=== PATIENT | female | born 2000 | race Caucasian/White ===

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

== ENCOUNTER 2022-06-10 11:08 | Emergency (ER) | payer BC, SELFPAY ==
[2022-06-10 11:16] VITALS: BP 132/87; PULSE 92; RESP 20; TEMP 36.5; O2SAT 100
--- NOTE | 2022-06-10 11:25 | ED.URI ---
HPI - URI/Sore Throat General Chief Complaint: Upper Respiratory Infection Stated Complaint: fever, sore throat, cough, nasal drainage Time Seen by Provider: 06/10/22 11:25 Source: patient Mode of arrival: ambulatory Limitations: no limitations History of Present Illness HPI Narrative: 22-year-old female presents with complaint of congestion, sore throat, cough, sinus pressure for 6 days. Reports low-grade temp of 100? F. denies chest pain or shortness of breath. Reports history of frequent sinus infections but symptoms worse than normal. Is taking an wodj-ouv-mogsjor Tylenol cold and flu. All Systems reviewed and negative except as noted above. Related Data Allergies Allergy/AdvReac Type Severity Reaction Status Date / Time No Known Allergies Allergy Verified 06/10/22 11:15 Review of Systems Review of Systems: CONSTITUTIONAL: Reports fever. Chills, or sweats. EYES: Denies visual changes, redness, or discharge. ENT: Report rhinorrhea, congestion, sore throat, sinus pressure. Denies otalgia. CARDIOVASCULAR: Denies chest pain, palpitations, or edema. RESPIRATORY: Reports cough. Denies dyspnea. GASTROINTESTINAL: Denies abdominal pain, nausea, vomiting, or diarrhea. GENITOURINARY: Denies dysuria or hematuria. SKIN: Denies rash or itching. MUSCULOSKELETAL: Denies back pain, joint pain, or myalgia. NEUROLOGIC: Denies headache, numbness, or weakness. PSYCHIATRIC: Denies anxiety or depression. All other systems reviewed are negative, except as documented in HPI. PMFSH Comments At time of signature, agree with nursing past medical, surgical, social and family history. There is no relevant family history pertinent to the presenting complaint. Exam Narrative: GENERAL: This is a well-nourished, well-developed patient. Patient is ill-appearing in no acute distress. HEAD: normocephalic, atraumatic. EYES: PERRL. Sclera clear/white. Vision is grossly intact. EARS: External ears normal, auditory canals clear and without drainage, TMs normal without perforation. Hearing grossly intact. NOSE: External nose normal with clear nasal drainage, moderate congestion. No frontal or maxillary sinus tenderness. THROAT: Mucous membranes moist, mild erythema, clear postnasal drainage. NECK: Neck supple, non-tender without lymphadenopathy, masses or thyromegaly. CARDIOVASCULAR: Regular rate and rhythm without murmurs, gallops, or rubs. RESPIRATORY: Clear to auscultation. Breath sounds equal bilaterally. No wheezes, rales, or rhonchi. SKIN: warm, Dry, intact with no suspicious lesions or rash, good texture and turgor. NEURO: awake, alert, and oriented to person, place and time. There were no obvious focal neurologic abnormalities. EXTREMITIES: No joint tenderness, effusion, or edema noted. Course Course Level of Care: Express Care Visit Vital Signs Vital signs: Vital Signs Temperature 36.5 C 06/10/22 11:16 Pulse Rate 92 06/10/22 11:16 Respiratory Rate 20 06/10/22 11:16 Blood Pressure 132/87 06/10/22 11:16 Pulse Oximetry 100 06/10/22 11:16 Temperature 36.5 C 06/10/22 11:16 Pulse Rate 92 06/10/22 11:16 Respiratory Rate 20 06/10/22 11:16 Blood Pressure 132/87 06/10/22 11:16 Pulse Oximetry 100 06/10/22 11:16 Reviewed MDM - URI/Sore Throat MDM Narrative Medical decision making narrative: Negative strep and influenza test. Will treat patient for bacterial sinus infection injury to frequent history and exam findings. Discharge Plan Discharge Clinical Impression: Acute bacterial sinusitis Patient Disposition: Home, Self-Care Condition: Stable Instructions: Antibiotic Form, Sinusitis (ED) Additional Instructions: Your influenza and strep test were negative today. Take medications as prescribed to treat your symptoms. Do not drive while taking prescription cough medication. It will make you drowsy. Drink plenty of water and rest. See your doctor if symptoms not improving. Pres
== END 2022-06-10 11:49 | disposition home or self-care (01) ==
PROVIDERS: Emergency Provider Nurse Practitioner Family; PCP Family Medicine
DX: J01.90 Acute sinusitis, unspecified (principal)
CPT/HCPCS: 87081; 87804; 87880; 99213; G0463

== ENCOUNTER 2022-12-26 12:23 | Emergency (ER) | payer BC, SELFPAY ==
--- NOTE | 2022-12-26 12:29 | ED.URI ---
HPI - URI/Sore Throat General Chief Complaint: Upper Respiratory Infection Stated Complaint: headache,sore throat,sinus pressure,fever Source: patient and RN notes reviewed History of Present Illness HPI Narrative: 22 yo F presents to urgent care with mom at side. Pt states she has been having congestion, headache, and sore throat since Tuesday. Pt states she began running a fever of 99 F today. Pt denies any ear pain, chest pain, SOB, abdominal pain, or N/V/D. Pt states she took Theraflu last night without relief. Related Data Home Medications Medication Instructions Recorded Confirmed semaglutide (weight loss) 0.25 0.25 mg subcut WEEKLY 12/26/22 12/26/22 mg/0.5 mL subcutaneous pen injector (BrightSun) Allergies Allergy/AdvReac Type Severity Reaction Status Date / Time No Known Allergies Allergy Verified 12/26/22 12:35 Review of Systems Review of Systems: Pertinent positives and pertinent negatives per HPI. PMFSH Comments At the time of my signature, I reviewed and agree with the nursing past medical, surgical, social, and family history. There is no relevant family history pertinent to the patient complaint. Exam Narrative: GENERAL: This is a well-nourished, well-developed patient, in no apparent distress. HEAD: normocephalic, atraumatic. EYES: Sclera clear/white. Vision is grossly intact. EARS: External ears normal, auditory canals clear and without drainage, TMs normal without perforation. Hearing grossly intact. NOSE: congested and runny nose THROAT: Mucous membranes moist, posterior pharynx erythemic. NECK: Neck supple, non-tender without lymphadenopathy, masses or thyromegaly. CARDIOVASCULAR: Regular rate and rhythm without murmurs, gallops, or rubs. RESPIRATORY: Clear to auscultation. Breath sounds equal bilaterally. No wheezes, rales, or rhonchi. SKIN: warm, intact with no suspicious lesions or rash, good texture and turgor. NEURO: awake, alert, and oriented to person, place and time. There were no obvious focal neurologic abnormalities. Course Course Level of Care: Express Care Visit Vital Signs Vital signs: Vital Signs Temperature 99.8 F H 12/26/22 12:37 Pulse Rate 93 12/26/22 12:37 Respiratory Rate 16 12/26/22 12:37 Blood Pressure 118/79 12/26/22 12:37 Pulse Oximetry 100 12/26/22 12:37 Temperature 99.8 F H 12/26/22 12:37 Pulse Rate 93 12/26/22 12:37 Respiratory Rate 16 12/26/22 12:37 Blood Pressure 118/79 12/26/22 12:37 Pulse Oximetry 100 12/26/22 12:37 reviewed MDM - URI/Sore Throat MDM Narrative Medical decision making narrative: Viral illness may last between 7-21 days; antibiotics do not cure viral illness and are NOT recommended at this time. Also, recommend symptomatic treatment includes: rest, fluids, and increase humidity of the air at home. Recommend Acetaminophen as directed on the bottle to reduce fever, pain, headache. Please schedule a follow-up visit with your personal physician for further evaluation and treatment within 3-5days. If your symptoms persist, change or worsen significantly before you can contact your personal physician then please, without delay, go to the emergency department for further evaluation. Pt states she usually gets a sinus infection in the fall and spring and that OTC meds do not help with her. Pt asking for an antibiotic now. Pt educated on why an antibiotic is not recommended at this time. Pt states she has nasal rinses at home. Recommended she increase her Vitamin C, Vitamin D, and fluids at home. Differential Diagnosis Differential diagnosis: Likely upper respiratory infection, viral infection and pharyngitis Lab Data Attestation: I reviewed the patient's lab results. Labs: Strep Screen Presumptive Negative *(Reference Range: Negative)* Critical Care Time Critical Care Time Critical Care Time: No Discharge Plan Disch
[2022-12-26 12:37] VITALS: BP 118/79; PULSE 93; RESP 16; TEMP 37.7; O2SAT 100
== END 2022-12-26 12:55 | disposition home or self-care (01) ==
PROVIDERS: Emergency Provider Nurse Practitioner Family; PCP Family Medicine
DX: J02.9 Acute pharyngitis, unspecified (principal); J06.9 Acute upper respiratory infection, unspecified
CPT/HCPCS: 87081; 87880; 99213; G0463

== ENCOUNTER 2023-06-20 17:44 | Emergency (ER) | payer BC, SELFPAY ==
--- NOTE | ~2023-06-20 | XR_ITS ---
EXAMINATION: XR chest 1V portable DATE: 06/21/2023 00:39 INDICATION: Syncope. Dizziness. TECHNIQUE: A single frontal view of the chest was obtained. COMPARISON: None. FINDINGS: There is no pneumonia, pleural effusion, or pneumothorax. The heart size is normal. IMPRESSION: 1. No acute cardiopulmonary disease. Reviewed, dictated and finalized at location E.
--- NOTE | 2023-06-20 17:56 | ECG_ITS ---
Measurements Intervals [place] Rate: 88 P: 5 MO: 176 QRS: 31 QRSD: 89 T: 26 QT: 353 QTc: 429 Interpretive Statements SINUS RHYTHM NO PREVIOUS ECG AVAILABLE FOR COMPARISON Electronically Signed On 06-21-2023 11:24:25 CDT by Jaci Herzog M.D.
--- NOTE | 2023-06-20 17:57 | ED.GENADULT ---
HPI - General Adult General Chief complaint: Dizziness Stated complaint: lightheaded, near syncope Time Seen by Provider: 06/20/23 23:49 History of Present Illness HPI narrative: Melodie Trujillo is a 23 y/o female who presents with reports of having a near syncope yesterday and she reports that she has similar symptoms of light headed/dizzy about a year ago but the episodes have become more frequent. She reports that she has felt continued fatigue/ light headed/ nausea and vomited once a couple days ago. Related Data Home Medications Medication Instructions Recorded Confirmed semaglutide (weight loss) 0.25 0.25 mg subcut WEEKLY 12/26/22 12/26/22 mg/0.5 mL subcutaneous pen injector (tok tok tok) Allergies Allergy/AdvReac Type Severity Reaction Status Date / Time No Known Allergies Allergy Verified 12/26/22 12:35 Course Vital Signs Vital signs: Vital Signs Temperature 36.2 C L 06/20/23 17:58 Pulse Rate 100 06/20/23 17:58 Respiratory Rate 16 06/20/23 17:58 Blood Pressure 137/86 06/20/23 17:58 Pulse Oximetry 100 06/20/23 17:58 Temperature 36.2 C L 06/20/23 17:58 Pulse Rate 96 06/21/23 03:07 Respiratory Rate 14 06/21/23 03:07 Blood Pressure 122/82 06/21/23 03:07 Pulse Oximetry 100 06/21/23 03:07 Medical Decision Making Vital Signs Vital Signs: Vital Signs Temperature 36.2 C L 06/20/23 17:58 Pulse Rate 100 06/20/23 17:58 Respiratory Rate 16 06/20/23 17:58 Blood Pressure 137/86 06/20/23 17:58 Pulse Oximetry 100 06/20/23 17:58 Temperature 36.2 C L 06/20/23 17:58 Pulse Rate 96 06/21/23 03:07 Respiratory Rate 14 06/21/23 03:07 Blood Pressure 122/82 06/21/23 03:07 Pulse Oximetry 100 06/21/23 03:07 Lab Data 06/20/23 18:20 06/20/23 18:20 Labs: Lab Results 06/20/23 06/20/23 06/21/23 Range/Units 18:20 23:45 00:26 WBC 10.5 H (4.5-10.0) K/mm3 RBC 4.14 L (4.2-5.4) M/mm3 Hgb 12.1 (12.0-15.0) g/dL Hct 37.3 (37.0-47.0) % MCV 90.1 (80-100) fl MCH 29.2 (26-34) pg MCHC 32.4 (32-36) g/dl RDW 13.8 (11.5-14.5) % Plt Count 299 (150-375) k/mm3 MPV 9.3 (7.4-10.4) fl Immature Gran % (Auto) 0.3 (0-0.5) % Neut % (Auto) 67.7 (45.5-73.1) % Lymph % (Auto) 24.3 (18.3-44.2) % [place] % (Auto) 5.2 (2.6-8.5) % Eos % (Auto) 2.3 (0-4.4) % Baso % (Auto) 0.2 (0.2-1.2) % Lymph # (Auto) 2.55 (0.9-3.2) K/mm3 [place] # (Auto) 0.5 (0.1-0.6) K/mm3 Eos # (Auto) 0.2 (0-0.3) K/mm3 Baso # (Auto) 0.0 (0.0-0.1) K/mm3 Abs Immat Gran (auto) 0.03 (0.00-0.031) K/mm3 Absolute Neuts (auto) 7.1 H (1.3-6.7) K/mm3 Absolute Nucleated RBC 0.0 (0.0-0.012) K/mm3 Nucleated RBC % 0.0 (0.0-0.2) % Sodium 138 (137-145) mmol/L Potassium 3.6 (3.4-5.0) mmol/L Chloride 104 (98-107) mmol/L Carbon Dioxide 28 (22-30) mmol/L Anion Gap 6 L (8-16) mmol/L BUN 11 (7-17) mg/dL Creatinine 0.80 (0.7-1.0) mg/dL Estim Creat Clear Calc 101 ml/min Estimated GFR > 60 (59 - ) Glucose 94 (65-110) mg/dL Calcium 9.1 (8.4-10.2) mg/dL Total Bilirubin 0.4 (0.2-1.3) mg/dL AST 18 (14-36) U/L ALT 11 (6-35) U/L Alkaline Phosphatase 46 (38-126) U/L Troponin I < 0.012 (0.000-0.034) ng/mL Total Protein 8.0 (6.3-8.2) g/dL Albumin 4.1 (3.5-5.1) g/dL TSH (Reflex) 1.230 (0.465-4.68) uIU/mL Urine Color Yellow (Yellow) Urine Appearance Cloudy H (Clear) Urine pH 7.5 (5.0-9.0) Ur Specific [place] 1.034 (1.001-1.035) Urine Protein 1+ H (Negative) mg/dL Urine Glucose (UA) Negative (Negative) mg/dL Urine Ketones Trace H (Negative) mg/dL Ur Blood (Man) 3+ H (Negative) Urine Nitrate Negative (Negative) Urine Bilirubin Negative (Negative) Urine Urobilinogen 1.0 (<2.0) mg/dL Leukocyte Esterase Rfl 1+ H (Negative) HEIDI/UL Urin
[2023-06-20 17:58] VITALS: BP 137/86; PULSE 100; RESP 16; TEMP 36.2; O2SAT 100
[2023-06-20 18:27] LABS: Basophils Percent Auto 0.2 % (0.2-1.2); Eosinophils Absolute Auto 0.2 K/mm3 (0-0.3); Eosinophils Percent Auto 2.3 % (0-4.4); Hematocrit 37.3 % (37.0-47.0); Hemoglobin 12.1 g/dL (12.0-15.0); Immature Granulocyte Absolute 0.03 K/mm3 (0.00-0.031); Immature Granulocyte Percent A 0.3 % (0-0.5); Lymphocytes Absolute Auto 2.55 K/mm3 (0.9-3.2); Lymphocytes Percent Auto 24.3 % (18.3-44.2); Mean Corpuscular HGB Conc 32.4 g/dl (32-36); Mean Corpuscular Hemoglobin 29.2 pg (26-34); Mean Corpuscular Volume 90.1 fl (80-100); Mean Platelet Volume 9.3 fl (7.4-10.4); Monocytes Absolute Auto 0.5 K/mm3 (0.1-0.6); Monocytes Percent Auto 5.2 % (2.6-8.5); Neutrophils Absolute Auto 7.1 K/mm3 (1.3-6.7); Neutrophils Percent Auto 67.7 % (45.5-73.1); Platelet Count Result 299 k/mm3 (150-375); Red Blood Count 4.14 M/mm3 (4.2-5.4); Red Cell Distribution Width 13.8 % (11.5-14.5); White Blood Count 10.5 K/mm3 (4.5-10.0)
[2023-06-20 18:38] LABS: Alanine Aminotransferase 11 U/L (6-35); Albumin Level 4.1 g/dL (3.5-5.1); Alkaline Phosphatase 46 U/L (38-126); Anion Gap 6 mmol/L (8-16); Aspartate Amino Transferase 18 U/L (14-36); Bilirubin,Total 0.4 mg/dL (0.2-1.3); Blood Urea Nitrogen 11 mg/dL (7-17); Calcium 9.1 mg/dL (8.4-10.2); Carbon Dioxide 28 mmol/L (22-30); Chloride 104 mmol/L (98-107); Estimated CRCL calculation 101 ml/min; Estimated Glomerular Filt Rate > 60; Glucose 94 mg/dL (65-110); Potassium 3.6 mmol/L (3.4-5.0); Sodium 138 mmol/L (137-145)
[2023-06-20 18:49] LABS: Troponin I < 0.012 ng/mL (0.000-0.034)
[2023-06-20 23:57] LABS: Add Urine Microscopic? YES; Appearance Urine Cloudy (Clear); Bacteria Urine 1+ /hpf; Bilirubin Urine Negative (Negative); Blood Urine 3+ (Negative); Color Urine Yellow (Yellow); Glucose Urine UA Negative (Negative); Ketones Urine Trace mg/dL (Negative); Leukocyte Esterase Ur 1+ LEU/UL (Negative); Nitrate Urine Negative (Negative); Non Pathogenic Casts 0-2; Protein Urine 1+ mg/dL (Negative); Specific Grav Ur 1.034 (1.001-1.035); Squamous Epithelial Cell Urine Occasional /hpf (Few); pH Urine 7.5 (5.0-9.0)
[2023-06-21 00:04] VITALS: BP 104/71
[2023-06-21 00:09] VITALS: BP 107/84
[2023-06-21 00:14] VITALS: BP 102/63
[2023-06-21] MEDS: SODIUM CHLORIDE 0.9% IV 1,000 ML 999 ML IV CONT (00:26)
[2023-06-21 00:28] VITALS: BP 117/86; PULSE 88; RESP 19; O2SAT 98
[2023-06-21 01:55] VITALS: BP 113/71; PULSE 87; RESP 14; O2SAT 98
--- NOTE | 2023-06-21 02:29 | ED.GENADULT ---
HPI - General Adult General Chief complaint: Dizziness Stated complaint: lightheaded, near syncope Time Seen by Provider: 06/20/23 23:49 History of Present Illness HPI narrative: This is a 23-year-old female presenting to ED with a chief complaint of weakness for 2-3 months. it is a generalized weakness. Is not associated with fever chills chest pain difficulty breathing abdominal pain nausea vomiting or diarrhea. She is here today because she has been having episodes of syncope and presyncope. She said today while she was micro eating some food she started feel lightheaded, her vision darkened, she became flushed and she had to sit down. After she sat down her symptoms improved. Patient states she is not eating or drinking today. She has had multiple episodes like this in the past. Related Data Home Medications Medication Instructions Recorded Confirmed semaglutide (weight loss) 0.25 0.25 mg subcut WEEKLY 12/26/22 12/26/22 mg/0.5 mL subcutaneous pen injector ([employer]MyBest[employer]Fandeavor) Allergies Allergy/AdvReac Type Severity Reaction Status Date / Time No Known Allergies Allergy Verified 12/26/22 12:35 Exam Narrative: APPEARANCE: No apparent distress. Head: atraumatic. EYES: EOMI, NOSE: Atraumatic NECK: Trachea midline RESPIRATORY: No increased rate of breathing Clear auscultation CARDIOVASCULAR: RRR, no peripheral edema, no reproducible orthostatic hypotension ABDOMINAL: Non-distended soft nontender, no CVA tenderness MUSCULOSKELETAl: No obvious deformities NEURO: Alert. Moving 4/4 extremities SKIN:: Warm, dry. Normal color PSYCHIATRIC: Normal affect Course Vital Signs Vital signs: Vital Signs Temperature 97.1 F L 06/20/23 17:58 Pulse Rate 100 06/20/23 17:58 Respiratory Rate 16 06/20/23 17:58 Blood Pressure 137/86 06/20/23 17:58 Pulse Oximetry 100 06/20/23 17:58 Temperature 97.1 F L 06/20/23 17:58 Pulse Rate 87 06/21/23 01:55 Respiratory Rate 14 06/21/23 01:55 Blood Pressure 113/71 06/21/23 01:55 Pulse Oximetry 98 06/21/23 01:55 Medical Decision Making [facility] [place] Narrative Medical decision making narrative: -Course: 23-year-old female presenting with 3 months of generalized weakness and an episode of syncope today. Weakness: Workup was negative for a definitive cause of her weakness. She has no objective weakness on exam. she will follow-up with her primary care physician. Syncope: Workup negative. History and physical consistent with vasovagal syncope. Discharged with instructions to eat and drink regularly and follow-up with your primary care physician. -DDX includes but is not limited to: Vasovagal syncope, dehydration, neurogenic syncope, anemia, hypothyroid, depression -Co-morbidities complicating care: heavy menses -Social determinants of health: in college, lives with a roommate -Hx from independent Sources: mother and father at bedside -Independent interpretation of studies: hemoglobin normal. White blood cell count 10.5. Metabolic panel unremarkable. Troponin ordered by triage negative. urine had some white blood cells and red blood cells with the patient is currently on her menses. She has no symptoms of UTI and will not be treated. Chest x-ray unremarkable. Independent EKG interpretation: Rhythm [sinus], Rate 88], Allen -[normal], ME -[normal], QRS [narrow], QTC [normal], T waves -[negative for concerning inversions], ST Segments - [Negative for concerning elevations] Final interpretations: [Normal Sinus Rhythm] Orthostatics unremarkable. -Interventions: 2 L normal saline -Shared decision making / Disposition: discharge primary care follow-up. Vital Signs Vital Signs: Vital Signs Temperature 97.1 F L 06/20/23 17:58 Pulse Rate 100 06/20/23 17:58 Respiratory Rate 16 06/20/23 17:58 Blood Pressure 137/86 06/20/23 17:58 Pulse Oximetry 100 06/20/23 17:58 Temperature 97.1 F L 06/20/23 17:58 Pulse Rate 87 10
[2023-06-21 03:07] VITALS: BP 122/82; PULSE 96; RESP 14; O2SAT 100
== END 2023-06-21 03:09 | disposition home or self-care (01) ==
PROVIDERS: Nurse Practitioner Family; Emergency Provider Emergency Medicine; PCP Family Medicine
DX: R55 Syncope and collapse (principal)
CPT/HCPCS: 36415; 71045; 80053; 81001; 84443; 84484; 85025; 87086; 93005; 96360; 99284; J7030

== ENCOUNTER 2024-01-16 10:32 | Emergency (ER) | payer BC, SELFPAY ==
[2024-01-16 10:38] VITALS: BP 130/78; PULSE 87; RESP 16; TEMP 37.2; O2SAT 100
--- NOTE | 2024-01-16 10:47 | ED.URI ---
HPI - URI/Sore Throat General Chief Complaint: Upper Respiratory Infection Stated Complaint: Sinus Infection Symptoms Time Seen by Provider: 01/16/24 10:47 Source: patient Mode of arrival: ambulatory Limitations: no limitations History of Present Illness HPI Narrative: 23-year-old female presents with complaint of runny nose, nasal congestion, sore throat, fatigue and coughing for 3 days. Afebrile. Taking [id number] cough and congestion medication to treat symptoms. Concern for COVID. No chest pain or shortness of breath. All systems reviewed and negative except as noted above. Related Data Home Medications Medication Instructions Recorded Confirmed semaglutide (weight loss) 0.25 0.25 mg subcut WEEKLY 12/26/22 01/16/24 mg/0.5 mL subcutaneous pen injector (Wegovy) norelgestromin 150 mcg-e.estradiol 1 patch transdermal WEEKLY 01/16/24 01/16/24 35 mcg/24 hr weekly transderm patch (Zafemy) Allergies Allergy/AdvReac Type Severity Reaction Status Date / Time No Known Allergies Allergy Verified 01/16/24 10:47 Review of Systems Review of Systems: CONSTITUTIONAL: Denies fever, chills, or sweats. EYES: Denies visual changes, redness, or discharge. ENT: Reports rhinorrhea, congestion, sore throat. Denies otalgia. CARDIOVASCULAR: Denies chest pain, palpitations, or edema. RESPIRATORY: Reports cough. Denies dyspnea. GASTROINTESTINAL: Denies abdominal pain, nausea, vomiting, or diarrhea. GENITOURINARY: Denies dysuria or hematuria. SKIN: Denies rash or itching. MUSCULOSKELETAL: Denies back pain, joint pain, or myalgia. NEUROLOGIC: Denies headache, numbness, or weakness. PSYCHIATRIC: Denies anxiety or depression. All other systems reviewed are negative, except as documented in HPI. PMFSH Comments At time of signature, agree with nursing past medical, surgical, social and family history. There is no relevant family history pertinent to the presenting complaint. Exam Narrative: GENERAL: This is a well-nourished, well-developed patient, in no apparent distress. HEAD: normocephalic, atraumatic. EYES: PERRL. Sclera clear/white. Vision is grossly intact. EARS: External ears normal, auditory canals clear and without drainage, TMs normal without perforation. Hearing grossly intact. NOSE: External nose normal with clear nasal drainage with erythema to nares without swelling. THROAT: Mucous membranes moist, clear postnasal drainage with mild erythema. No swelling or exudates. NECK: Neck supple, non-tender without lymphadenopathy, masses or thyromegaly. CARDIOVASCULAR: Regular rate and rhythm without murmurs, gallops, or rubs. RESPIRATORY: Clear to auscultation. Breath sounds equal bilaterally. No wheezes, rales, or rhonchi. SKIN: warm, Dry, intact with no suspicious lesions or rash, good texture and turgor. NEURO: awake, alert, and oriented to person, place and time. There were no obvious focal neurologic abnormalities. EXTREMITIES: No joint tenderness, effusion, or edema noted. Course Course Level of Care: Express Care Visit Vital Signs Vital signs: Vital Signs Temperature 37.2 C 01/16/24 10:38 Pulse Rate 87 01/16/24 10:38 Respiratory Rate 16 01/16/24 10:38 Blood Pressure 130/78 01/16/24 10:38 Pulse Oximetry 100 01/16/24 10:38 Temperature 37.2 C 01/16/24 10:38 Pulse Rate 87 01/16/24 10:38 Respiratory Rate 16 01/16/24 10:38 Blood Pressure 130/78 01/16/24 10:38 Pulse Oximetry 100 01/16/24 10:38 Reviewed MDM - URI/Sore Throat MDM Narrative Medical decision making narrative: Patient is aware of diagnosis, understands and agrees to treatment plan. Anticipatory guidance given. Patient agrees to follow-up as directed and is aware of reasons to seek care at the emergency department. Portions of this record may have been created with voice recognition software Negative COVID, influenza and strep test. Nontoxic. Recommend [id number] medications
== END 2024-01-16 12:25 | disposition home or self-care (01) ==
PROVIDERS: Emergency Provider Nurse Practitioner Family; PCP Family Medicine
DX: J06.9 Acute upper respiratory infection, unspecified (principal); Z20.822 Contact with and (suspected) exposure to COVID-19
CPT/HCPCS: 87081; 87426; 87804; 87880; 99213; G0463

== ENCOUNTER 2024-01-17 16:42 | Outpatient (CLI) | payer BC, SELFPAY ==
--- NOTE | ~2024-01-17 | CT_ITS ---
EXAMINATION: CT sinus wo con DATE: 01/17/2024 16:58 INDICATION: Sinusitis TECHNIQUE: Computed tomography (CT) of the paranasal sinuses was performed without intravenous contra st. The dose-length product was 293.24 mGy-cm. Automated exposure control and iterative reconstructio n technique were employed. COMPARISON: None FINDINGS: There is mucosal thickening of the ethmoid, sphenoid and maxillary sinuses. No air-fluid le vels. No mucoperiosteal reaction. Left-sided sol bullosa is present. Leftward nasal septal deviati on. Ostiomeatal units are occluded by soft tissue. Mastoids are pneumatized. IMPRESSION: 1. Moderate sinus disease. Reviewed, dictated and finalized at location B. IMPRESSION: 1. Moderate sinus disease.
== END 2024-01-17 16:43 | disposition home or self-care (01) ==
PROVIDERS: PCP Family Medicine
DX: J34.89 Other specified disorders of nose and nasal sinuses (principal)
CPT/HCPCS: 70486

== ENCOUNTER 2024-12-16 16:01 | Emergency (ER) | payer BC, SELFPAY ==
[2024-12-16 16:15] VITALS: BP 118/73; PULSE 80; RESP 16; TEMP 36.6; O2SAT 100
--- NOTE | 2024-12-16 16:45 | ED.URI ---
HPI - URI/Sore Throat General Chief Complaint: Upper Respiratory Infection Stated Complaint: Sinus Infection Symptoms Time Seen by Provider: 12/16/24 16:33 Source: patient Mode of arrival: ambulatory Limitations: no limitations History of Present Illness HPI Narrative: Patient presents to the clinic with complaints of congestion and a runny nose since Tuesday. She has been taking Zyrtec twice a day and Sudafed. Denies any shortness of breath or difficulty swallowing. Related Data Home Medications ?Medication ?Instructions ?Recorded ?Confirmed ?Last Taken ?Type semaglutide (weight loss) 0.25 0.25 mg subcut WEEKLY 12/26/22 01/16/24 Unknown History mg/0.5 mL subcutaneous pen injector (Wegovy) norelgestromin 150 mcg-e.estradiol 1 patch transdermal WEEKLY 01/16/24 01/16/24 Unknown History 35 mcg/24 hr weekly transderm patch (Zafemy) semaglutide (weight loss) 0.5 mg subcut 12/16/24 Unknown History mg/0.5 mL subcutaneous pen injector (Wegovy) Allergies Allergy/AdvReac Type Severity Reaction Status Date / Time No Known Allergies Allergy Verified 12/16/24 16:41 Review of Systems Review of Systems: CONSTITUTIONAL: Denies body aches, fever, chills, or sweats. Reports EYES: Denies visual changes, redness, or discharge. ENT: Reports rhinorrhea and congestion. Denies sore throat or otalgia. CARDIOVASCULAR: Denies chest pain, palpitations, or edema. RESPIRATORY: Reports cough or dyspnea. GASTROINTESTINAL: Denies abdominal pain, nausea, vomiting, or diarrhea. GENITOURINARY: Denies dysuria or hematuria. SKIN: Denies rash, itching, or wounds. MUSCULOSKELETAL: Denies back pain, joint pain, or myalgia. NEUROLOGIC: Denies headache, numbness, tingling, or weakness. PSYCH: Denies depression or anxiety. All systems reviewed & are unremarkable except as noted in HPI and below PMFSH Comments At time of signature, I have reviewed and agree with nursing past medical, surgical, social and family history unless otherwise noted. Please see nursing chart for further information. There is no relevant family history pertinent to the presenting complaint. Exam Narrative: GENERAL: Well-appearing, well-nourished, and in no acute distress. EYES: EOMI. No redness or drainage. Conjunctivae normal. ENT: Mucous membranes pink and moist. Nares clear. TMs fluid filled but intact. Throat normal without tonsillar exudate, uvula midline. Rhinorrhea and nasal congestion noted. NECK: Normal AROM. Supple. No lymphadenopathy. CHEST: No respiratory distress. Clear to auscultation. HEART: Regular rate and rhythm. No murmur appreciated. Normal peripheral pulses. ABDOMEN: Soft, nontender, nondistended, normal active bowel sounds. SKIN: Warm, dry, no rash. Capillary refill normal. Normal skin turgor. NEURO: No focal deficits. Alert and oriented x3. Gait steady. PSYCH: Normal affect. No signs of depression or anxiety. Course Course Level of Care: Express Care Visit Vital Signs Vital signs: Vital Signs Temperature 97.9 F 12/16/24 16:15 Pulse Rate 80 12/16/24 16:15 Respiratory Rate 16 12/16/24 16:15 Blood Pressure 118/73 12/16/24 16:15 Pulse Oximetry 100 12/16/24 16:15 Temperature 97.9 F 12/16/24 16:15 Pulse Rate 80 12/16/24 16:15 Respiratory Rate 16 12/16/24 16:15 Blood Pressure 118/73 12/16/24 16:15 Pulse Oximetry 100 12/16/24 16:15 Reviewed. MDM - URI/Sore Throat MDM Narrative Medical decision making narrative: Discussed physical exam findings. Steroid sent in for inflammation. Advised supportive measures and signs/symptoms to go to the ER. Pt is appropriate for outpt treatment and follow up. Differential Diagnosis Differential diagnosis: Likely upper respiratory infection, sinusitis, viral infection and bronchitis Critical Care Time Critical Care Time Critical Care Time: No Discharge Plan Discharge Clinical Impression: Upper respiratory infection Qualifiers: URI type: unspecified viral URI Qualified Code(s): J06.9 - Acute upper respiratory infection, unspecified Patient Disposition: Home Condition: Stable Instructions: Viral Syndrome (ED) Additional Instructions: Take steroid as prescribed. Recommend Flonase spray and Zyrtec (or Claritin/Tammy) Tylenol 1000mg every 8 hours as needed for pain Symptomatic treatment includes: rest, fluids, and increase humidity of the air at home. Follow up with your primary care provider in 1 week. Go to the ER for worsening symptoms or concerns. Patient Language: Pakistani Prescriptions: New methylprednisolone [Medrol (Kehinde)] 4 mg tablets,dose pack See Rx Instructions .ROUTE .COMPLEX Qty: 21 0RF Rx Instructions: Take medication as directed on the package. No Action Wegovy 0.5 mg/0.5 mL pen injector SUBCUT Wegovy 0.25 mg/0.5 mL pen injector 0.25 mg SUBCUT WEEKLY norelgestromin-ethin.estradiol [Zafemy] 150-35 mcg/24 hr patch weekly 1 patch transdermal WEEKLY benzonatate 200 mg capsule 200 mg PO TID PRN (Reason: cough) Qty: 20 0RF methylprednisolone [Medrol (Kehinde)] 4 mg tablets,dose pack See Rx Instructions PO .COMPLEX Qty: 21 0RF Rx Instructions: orally per package directions Follow-up/Referrals: PHYSICIAN,ADMITTING COORDINATOR [Primary Care Provider] - Stand Alone Forms: Work/School Release IP
== END 2024-12-16 16:52 | disposition home or self-care (01) ==
DX: J06.9 Acute upper respiratory infection, unspecified (principal)
CPT/HCPCS: 99213; G0463

== ENCOUNTER 2025-03-20 15:45 | Emergency (ER) | payer BC, SELFPAY ==
[2025-03-20 15:55] VITALS: BP 124/81; PULSE 86; RESP 16; TEMP 36.5; O2SAT 100
[2025-03-20 16:12] LABS: EDCOVIDSCREEN Negative (Negative); EDINFLUASCREEN Negative (Negative); EDINFLUBSCREEN Negative (Negative)
--- NOTE | 2025-03-20 17:05 | ED_ITS ---
HPI - URI/Sore Throat General Chief Complaint: Upper Respiratory Infection Stated Complaint: SINUS CONGESTION Time Seen by Provider: 03/20/25 15:45 Source: patient and RN notes reviewed Mode of arrival: ambulatory Limitations: no limitations History of Present Illness HPI Narrative: 25-year-old female presents Express Care complaining of upper respiratory symptoms for proximally 3 days. Patient reports congestion, sinus pressure, cough, body aches, chills. Patient denies any sore throat, runny nose, earache, chest pain, breathing problems, nausea vomiting, diarrhea, or any other symptoms. Patient has been taking DayQuil and NyQuil without relief. Patient has a history of chronic sinusitis. Related Data Home Medications ?Medication ?Instructions ?Recorded ?Confirmed ?Last Taken ?Type semaglutide (weight loss) 0.25 0.25 mg subcut WEEKLY 12/26/22 01/16/24 Unknown History mg/0.5 mL subcutaneous pen injector (Wegovy) norelgestromin 150 mcg-e.estradiol 1 patch transdermal WEEKLY 01/16/24 01/16/24 Unknown History 35 mcg/24 hr weekly transderm patch (Zafemy) semaglutide (weight loss) 0.5 mg subcut 12/16/24 Unknown History mg/0.5 mL subcutaneous pen injector (Wegovy) Allergies Allergy/AdvReac Type Severity Reaction Status Date / Time No Known Allergies Allergy Verified 03/20/25 15:48 Review of Systems Review of Systems: CONSTITUTIONAL: Denies fever or sweats. Positive for chills and body aches. EYES: Denies visual changes, redness, or discharge. ENT: Positive for sinus pressure, congestion. Negative for rhinorrhea, sore throat, or otalgia. CARDIOVASCULAR: Denies chest pain, palpitations, or edema. RESPIRATORY: Positive for cough. Negative for dyspnea or wheezing. GASTROINTESTINAL: Denies abdominal pain, nausea, vomiting, or diarrhea. GENITOURINARY: Denies dysuria or hematuria. SKIN: Denies rash or itching. MUSCULOSKELETAL: Denies back pain, joint pain, or myalgia. NEUROLOGIC: Denies headache, numbness, or weakness. PSYCHIATRIC: Denies anxiety or depression. All other systems reviewed are negative, except as documented in HPI. PMFSH Comments At the time of my signature, I reviewed and agree with the nursing past medical, surgical, social, and family history. There is no relevant family history pertinent to the patient complaint. Exam Narrative: GENERAL: This is a well-nourished, well-developed adult, in no apparent distress. They are non ill-appearing, nontoxic appearing. HEAD: normocephalic, atraumatic. EYES: Sclera clear/white. Vision is grossly intact. Conjunctiva normal bilaterally. Extraocular movements intact. EARS: External ears normal, auditory canals clear and without drainage, TMs without erythema or perforation. Hearing grossly intact. NOSE: External nose normal with no obvious nasal discharge, nasal turbinates erythematous, no rhinorrhea. THROAT: Mucous membranes moist, posterior pharynx edematous without redness, without exudate. Uvula is midline. Postnasal drip present. NECK: Neck supple, non-tender without lymphadenopathy, masses or thyromegaly. CARDIOVASCULAR: Regular rate and rhythm without murmurs, gallops, or rubs. RESPIRATORY: Clear to auscultation. Breath sounds equal bilaterally. No wheezes, rales, or rhonchi. SKIN: warm, Dry, intact with no suspicious lesions or rash, good texture and turgor. NEURO: awake, alert, and oriented to person, place and time. There were no obvious focal neurologic abnormalities. EXTREMITIES: No joint tenderness, effusion, or edema noted. BACK: Nontender without deformity. Course Course Emergency Course: Portions of this record may have been created with voice recognition software Level of Care: Express Care Visit Vital Signs Vital signs: Vital Signs Temperature 97.7 F 03/20/25 15:55 Pulse Rate 86 03/20/25 15:55 Respiratory Rate 16 03/20/25 15:55 Blood Pressure 124/81 03/20/25 15:55 Pulse Oximetry 100 03/20/25 15:55 Temperature 97.7 F 03/20/25 15:55 Pulse Rate 86 03/20/25 15:55 Respiratory Rate 16 03/20/25 15:55 Blood Pressure 124/81 03/20/25 15:55 Pulse Oximetry 100 03/20/25 15:55 MDM - URI/Sore Throat MDM Narrative Medical decision making narrative: Rapid COVID and flu were negative. Symptoms likely viral in etiology. Will give patient course of Dosepak to help with symptoms. Discussed physical exam findings. Advised supportive measures and signs/symptoms to go to the ER. Pt is appropriate for outpt treatment and f/u. Differential Diagnosis Differential diagnosis: Likely sinusitis, viral infection and bronchitis Lab Data Attestation: I reviewed the patient's lab results. Labs: Lab Results 03/20/25 Range/Units 16:10 POC Influenza A Ag Negative (Negative) POC Influenza B Ag Negative (Negative) POC SARS CoV-2 Ag Negative (Negative) Discharge Plan Discharge Clinical Impression: Upper respiratory infection Qualifiers: URI type: unspecified URI Qualified Code(s): J06.9 - Acute upper respiratory infection, unspecified Patient Disposition: Home Condition: Stable Instructions: Upper Respiratory Infection (ED) Additional Instructions: Your rapid COVID and flu were negative. Take the steroid pack as directed. Viral illness may last between 7-14 days; antibiotics do not cure viral illness and are NOT recommended at this time. Cough syrup may cause drowsiness; avoid driving or take it at night time. Also, recommend symptomatic treatment includes: rest, fluids, and increase humidity of the air at home. Recommend Acetaminophen or Motrin as directed on the bottle to reduce fever, pain, headache. Please schedule a follow-up visit with your personal physician for further evaluation and treatment within 3-5days. If your symptoms persist, change or worsen significantly before you can contact your personal physician then please, without delay, go to the emergency department for further evaluation. Patient Language: Citizen Of [place] Prescriptions: New methylprednisolone 4 mg tablets,dose pack See Rx Instructions .ROUTE .COMPLEX Qty: 21 0RF Rx Instructions: for 6 days No Action Wegovy 0.5 mg/0.5 mL pen injector SUBCUT Wegovy 0.25 mg/0.5 mL pen injector 0.25 mg SUBCUT WEEKLY norelgestromin-ethin.estradiol [Zafemy] 150-35 mcg/24 hr patch weekly 1 patch transdermal WEEKLY Follow-up/Referrals: Phil,Laurel Vogel MD [Primary Care Provider] - Time of Disposition: 16:20
== END 2025-03-20 16:29 | disposition home or self-care (01) ==
PROVIDERS: PCP Family Medicine
DX: J06.9 Acute upper respiratory infection, unspecified (principal); Z20.822 Contact with and (suspected) exposure to COVID-19
CPT/HCPCS: 87426; 87804; 99213; G0463

== ENCOUNTER 2025-04-13 17:53 | Emergency (ER) | payer BC, SELFPAY ==
[2025-04-13 18:01] VITALS: BP 121/86; PULSE 100; RESP 16; TEMP 36.4; O2SAT 100
--- NOTE | 2025-04-13 18:21 | ED_ITS ---
HPI - General Adult General Chief complaint: Upper Respiratory Infection Stated complaint: SINUS Source: patient Mode of arrival: ambulatory Limitations: no limitations History of Present Illness HPI narrative: Patient presents for evaluation of sinus symptoms since yesterday. She has a history of recurrent sinusitis and responds well to the Medrol Dosepaks. She saw ENT and was told to take Zyrtec daily, which she does do. She was exposed to the children at work with been sick. She has a mild sore throat secondary to postnasal drainage. No fever, chills, nausea, vomiting, or shortness of breath. She has not required abx therapy when she has had similar symptoms in the past. She does not smoke. Related Data Home Medications ?Medication ?Instructions ?Recorded ?Confirmed ?Last Taken ?Type semaglutide (weight loss) 0.25 0.25 mg subcut WEEKLY 0 12/26/22 01/16/24 Unknown History mg/0.5 mL subcutaneous pen injector (Wegovy) norelgestromin 150 mcg-e.estradiol 1 patch transdermal WEEKLY 01/16/24 04/13/25 Unknown History 35 mcg/24 hr weekly transderm patch (Zafemy) semaglutide (weight loss) 0.5 mg subcut 12/16/24 Unkn own History mg/0.5 mL subcutaneous pen injector (Wegovy) Allergies Allergy/AdvReac Type Severity Reaction Status Date / Time No Known Allergies Allergy Verified 04/13/25 18:01 Review of Systems Review of Systems: CONSTITUTIONAL: Denies fever, chills, or sweats. EYES: Denies visual changes, redness, or discharge. ENT: Reports sinus congestion, postnasal drainage, rhinorrhea, mild sore throat secondary to postnasal drainage CARDIOVASCULAR: Denies chest pain, palpitations, or edema. RESPIRATORY: Denies cough or dyspnea. GASTROINTESTINAL: Denies abdominal pain, nausea, vomiting, or diarrhea. GENITOURINARY: Denies dysuria or hematuria. SKIN: Denies rash or itching. MUSCULOSKELETAL: Denies back pain, joint pain, or myalgia. NEUROLOGIC: Denies headache, numbness, dizziness, or weakness. PSYCHIATRIC: Denies anxiety or depression. [facility] Past Medical History Medical History Recurrent sinusitis Surgical History Surgical History No pertinent past surgical history Family History Family History Mother Family history non-contributory Social History Social History (Updated 04/13/25 @ 18:37 by Wero Ying [facility], ) Smoking status: Never smoker Substance use: never Gender identity (if verbalized by the patient): Female Spiritual care concerns: No Exam Narrative: GENERAL: Well-appearing, well-nourished, and in no acute distress. HEAD: Normocephalic, atraumatic. EYES: PERRLA and EOMI. ENT: Nares clear, no rhinorrhea or epistaxis. Mucous membranes moist. Oropharynx without tonsillar hypertrophy exudate or other lesions. Bilateral TMs pearly thomas nonbulging NECK: Supple. No adenopathy or masses. No carotid bruits or JVD CHEST: Clear to auscultation. No respiratory distress. No wheezes rales or rhonchi HEART: Regular rate and rhythm. No murmur heard. Normal peripheral pulses. ABDOMEN: Soft, nontender, nondistended, normal active bowel sounds. EXTREMITIES: Normal range of motion. No edema. SKIN: Warm, dry, no rash. NEURO: No focal deficits. Alert and oriented x3. PSYCH: Normal mood and affect. Course Course Emergency Course: this is a 25-year-old female who presented for evaluation of recurrent sinus symptoms. She has responded favorably to steroids in the past. She does not have a clinical indication for antibiotics. Will discharge with Medrol Dosepak. Increase hydration. [id number]-[id number] agents for symptom management. Follow up with primary provider. Go to the ER for worsening symptoms. Patient in agreement with plan of care. Level of Care: Express Care Visit Vital Signs Vital signs: Vital Signs Temperature 36.4 C 04/13/25 18:01 Pulse Rate 100 04/13/25 18:01 Respiratory Rate 16 04/13/25 18:01 Blood Pressure 121/86 04/13/25 18:01 Pulse Oximetry 100 04/13/25 18:01 Temperature 36.4 C 04/13/25 18:01 Pulse Rate 100 04/13/25 18:01 Respiratory Rate 16 04/13/25 18:01 Blood Pressure 121/86 04/13/25 18:01 Pulse Oximetry 100 04/13/25 18:01 Medical Decision Making Vital Signs Vital Signs: Vital Signs Temperature 36.4 C 04/13/25 18:01 Pulse Rate 100 04/13/25 18:01 Respiratory Rate 16 04/13/25 18:01 Blood Pressure 121/86 04/13/25 18:01 Pulse Oximetry 100 04/13/25 18:01 Temperature 36.4 C 04/13/25 18:01 Pulse Rate 100 04/13/25 18:01 Respiratory Rate 16 04/13/25 18:01 Blood Pressure 121/86 04/13/25 18:01 Pulse Oximetry 100 04/13/25 18:01 Discharge Plan Discharge Clinical Impression: Sinusitis Patient Disposition: Home Condition: Stable Instructions: Antibiotic Form, Sinusitis (ED) Patient Language: Solomon Islander Prescriptions: New methylprednisolone [Medrol (Kehinde)] 4 mg tablets,dose pack See Rx Instructions .ROUTE .COMPLEX Qty: 21 0RF Rx Instructions: for 6 days No Action Wegovy 0.5 mg/0.5 mL pen injector SUBCUT Wegovy 0.25 mg/0.5 mL pen injector 0.25 mg SUBCUT WEEKLY norelgestromin-ethin.estradiol [Zafemy] 150-35 mcg/24 hr patch weekly 1 patch transdermal WEEKLY Follow-up/Referrals: Phil,Laurel Vogel MD [Primary Care Provider] Time of Disposition: 18:12
== END 2025-04-13 18:15 | disposition home or self-care (01) ==
PROVIDERS: Emergency Provider Nurse Practitioner; PCP Family Medicine
DX: J32.9 Chronic sinusitis, unspecified (principal)
CPT/HCPCS: 99213; G0463

== ENCOUNTER 2025-04-28 14:01 | Emergency (ER) | payer BC, SELFPAY ==
[2025-04-28 14:21] VITALS: BP 112/79; PULSE 92; RESP 16; TEMP 36.4; O2SAT 96
--- NOTE | 2025-04-28 14:58 | ED_ITS ---
HPI - General Adult General Chief complaint: Upper Respiratory Infection Stated complaint: COUGH/SINUS Source: patient Mode of arrival: ambulatory Limitations: no limitations History of Present Illness HPI narrative: Patient presents for evaluation of sinus symptoms. I saw her here on 04/13/25 for her symptoms, at which time she was given medrol dose micah. Typically she has responded well to the medication in the past when she has had sinus infections in the past. However this time she did not have significant improvement in her symptoms. She now has thick green drainage from the nares, postnasal drainage, and productive cough of green sputum. No fever, chills, nausea, vomiting, shortness of, diarrhea. She does not smoke. Related Data Home Medications ?Medication ?Instructions ?Recorded ?Confirmed ?Last Taken ?Type semaglutide (weight loss) 0.25 0.25 mg subcut WEEKLY 0 12/26/22 04/28/25 Unknown History mg/0.5 mL subcutaneous pen injector (Wegovy) norelgestromin 150 mcg-e.estradiol 1 patch transdermal WEEKLY 01/16/24 04/28/25 Unknown History 35 mcg/24 hr weekly transderm patch (Zafemy) semaglutide (weight loss) 0.5 mg subcut 12/16/24 Unkn own History mg/0.5 mL subcutaneous pen injector (Wegovy) Allergies Allergy/AdvReac Type Severity Reaction Status Date / Time No Known Allergies Allergy Verified 04/28/25 14:20 Review of Systems Review of Systems: CONSTITUTIONAL: Denies fever, chills, or sweats. EYES: Denies visual changes, redness, or discharge. ENT: Reports sinus congestion, thick green drainage from the nares and post- nasal drainage CARDIOVASCULAR: Denies chest pain, palpitations, or edema. RESPIRATORY: Reports cough. Denies dyspnea. GASTROINTESTINAL: Denies abdominal pain, nausea, vomiting, or diarrhea. GENITOURINARY: Denies dysuria or hematuria. SKIN: Denies rash or itching. MUSCULOSKELETAL: Denies back pain, joint pain, or myalgia. NEUROLOGIC: Denies headache, numbness, dizziness, or weakness. PSYCHIATRIC: Denies anxiety or depression. PENDING SALE TO [facility] Past Medical History Medical History Recurrent sinusitis Surgical History Surgical History No pertinent past surgical history Family History Family History Mother Family history non-contributory Social History Social History Smoking status: Never smoker Substance use: never Gender identity (if verbalized by the patient): Female Spiritual care concerns: No Exam Narrative: GENERAL: Well-appearing, well-nourished, and in no acute distress. HEAD: Normocephalic, atraumatic. EYES: PERRLA and EOMI. ENT: Nares clear, no rhinorrhea or epistaxis. Mucous membranes moist. Oropharynx without tonsillar hypertrophy exudate or other lesions. Bilateral TMs pearly thomas nonbulging NECK: Supple. No adenopathy or masses. No carotid bruits or JVD CHEST: Clear to auscultation. No respiratory distress. No wheezes rales or rhonchi HEART: Regular rate and rhythm. No murmur heard. Normal peripheral pulses. ABDOMEN: Soft, nontender, nondistended, normal active bowel sounds. EXTREMITIES: Normal range of motion. No edema. SKIN: Warm, dry, no rash. NEURO: No focal deficits. Alert and oriented x3. PSYCH: Normal mood and affect. Course Course Emergency Course: This is a 25-year-old female who presented for evaluation of sinus symptoms. She meets criteria for bacterial sinusitis based upon duration of time in which she has been symptomatic and mucopurulent nature for discharge. Will discharge with Augmentin. Start prednisone and taper it due to recent steroid use. She requested Michelle Guadarrama. I did offer to perform a chest x-ray, which she declined. I think this is reasonable as she has no adventitious lung sounds. She should follow-up with her primary care provider and go to the ER for worsening symptoms. Patient in agreement with plan of care. Level of Care: Express Care Visit Vital Signs Vital signs: Vital Signs Temperature 36.4 C L 04/28/25 14:21 Pulse Rate 92 04/28/25 14:21 Respiratory Rate 16 04/28/25 14:21 Blood Pressure 112/79 04/28/25 14:21 Pulse Oximetry 96 04/28/25 14:21 Oxygen Delivery Room Air 04/28/25 14:21 Temperature 36.4 C L 04/28/25 14:21 Pulse Rate 92 04/28/25 14:21 Respiratory Rate 16 04/28/25 14:21 Blood Pressure 112/79 04/28/25 14:21 Pulse Oximetry 96 04/28/25 14:21 Oxygen Delivery Room Air 04/28/25 14:21 Medical Decision Making Vital Signs Vital Signs: Vital Signs Temperature 36.4 C L 04/28/25 14:21 Pulse Rate 92 04/28/25 14:21 Respiratory Rate 16 04/28/25 14:21 Blood Pressure 112/79 04/28/25 14:21 Pulse Oximetry 96 04/28/25 14:21 Oxygen Delivery Room Air 04/28/25 14:21 Temperature 36.4 C L 04/28/25 14:21 Pulse Rate 92 04/28/25 14:21 Respiratory Rate 16 04/28/25 14:21 Blood Pressure 112/79 04/28/25 14:21 Pulse Oximetry 96 04/28/25 14:21 Oxygen Delivery Room Air 04/28/25 14:21 Discharge Plan Discharge Clinical Impression: Bacterial sinusitis Patient Disposition: Home Condition: Stable Instructions: Antibiotic Form, Sinusitis (ED) Patient Language: Slovenian Prescriptions: New amoxicillin-pot clavulanate 875-125 mg tablet 1 tablet PO Q12H Qty: 20 0RF benzonatate 200 mg capsule 200 mg PO TID PRN (Reason: cough) Qty: 20 0RF prednisone 20 mg tablet See Rx Instructions .ROUTE .COMPLEX Qty: 11 0RF Rx Instructions: take 2 tabs po daily x 3 days, then 1 tab po daily x 3 days, then 1/2 tab po daily x 4 days No Action Wegovy 0.5 mg/0.5 mL pen injector SUBCUT Wegovy 0.25 mg/0.5 mL pen injector 0.25 mg SUBCUT WEEKLY norelgestromin-ethin.estradiol [Zafemy] 150-35 mcg/24 hr patch weekly 1 patch transdermal WEEKLY Follow-up/Referrals: Debie,Laurel Vogel MD [Primary Care Provider] Time of Disposition: 14:54
== END 2025-04-28 15:00 | disposition home or self-care (01) ==
PROVIDERS: Emergency Provider Nurse Practitioner; PCP Family Medicine
DX: J32.9 Chronic sinusitis, unspecified (principal)
CPT/HCPCS: 99213; G0463